=== PATIENT | male | born 1980 | race Caucasian/White ===

== ENCOUNTER 2017-05-10 15:00 | Emergency (ER) | payer OTHER ==
[2017-05-10 15:03] VITALS: BP 129/63
== END 2017-05-10 17:30 | disposition home or self-care (01) ==
LOC: ED 15:00
DX: T15.01XA Foreign body in cornea, right eye, initial encounter (principal); X58.XXXA Exposure to other specified factors, initial encounter; Y93.89 Activity, other specified; Y99.8 Other external cause status; Y92.89 Other specified places as the place of occurrence of the external cause
CPT/HCPCS: 90715